=== PATIENT | female | born 1965 | race Caucasian/White ===

== ENCOUNTER 2018-01-05 10:09 | Emergency (ER) | payer SELFPAY ==
[2018-01-05 10:14] VITALS: BP 134/82
--- NOTE | 2018-01-05 10:43 | ER Document Report ---
HPI - HPI Pain Level: 4 Course - Vital Signs Vital signs: Temp Pulse Resp BP Pulse Ox 98.5 F 90 16 134/82 H 100 01/05/18 10:12 01/05/18 10:12 01/05/18 10:12 01/05/18 10:12 01/05/18 10:12
--- NOTE | 2018-01-05 10:46 | ER Document Report ---
ED Oral Problem - General Chief Complaint: Toothache Stated Complaint: TOOTH PAIN Time Seen by Provider: 01/05/18 10:38 Mode of Arrival: Ambulatory Information source: Patient Notes: This 52-year-old female patient comes emergency room with 2 day history of right lower jaw swelling and toothache. She had a crown fall off of the tooth a year ago and has not been back to see a dentist. There is no fever. There is been no drainage. - Related Data Allergies/Adverse Reactions: No Known Allergies Allergy (Unverified 01/05/18 10:11) Past Medical History - General Information source: Patient - Social History Smoking Status: Current Every Day Smoker Cigarette use (# per day): Yes - 1 PPD Chew tobacco use (# tins/day): No Smoking Education Provided: No Frequency of alcohol use: None Drug Abuse: None Lives with: Family Family History: Reviewed & Not Pertinent - Medical History Medical History: Negative Past Surgical History: Reports: Other - Bilateral spontaneous pneumothorax with chest tube insertion Review of Systems - Review of Systems Constitutional: No symptoms reported EENT: Dental problem Cardiovascular: No symptoms reported Respiratory: No symptoms reported Gastrointestinal: No symptoms reported Genitourinary: No symptoms reported Female Genitourinary: Post menopausal Musculoskeletal: No symptoms reported Skin: No symptoms reported Hematologic/Lymphatic: No symptoms reported Neurological/Psychological: No symptoms reported Physical Exam - Vital signs Vitals: Temp Pulse Resp BP Pulse Ox 98.5 F 90 16 134/82 H 100 01/05/18 10:12 01/05/18 10:12 01/05/18 10:12 01/05/18 10:12 01/05/18 10:12 - General General appearance: Appears well, Alert In distress: Mild - HEENT Head: Normocephalic, Atraumatic, Other - Right lower jaw region is swollen and tender without erythema. Eyes: Normal Pupils: PERRL Mouth/Lips: Other - The right lower first premolar shows a decayed stump or spike where the crown once set. There is edema to the gums on either side, there is no pointing abscess detected. Neck: Normal - Respiratory Respiratory status: No respiratory distress - Cardiovascular Rhythm: Regular - Abdominal Inspection: Normal - Back Back: Normal - Extremities General upper extremity: Normal inspection General lower extremity: Normal inspection - Neurological Neuro grossly intact: Yes - Psychological Associated symptoms: Normal affect, Normal mood - Skin Skin Temperature: Warm Skin Moisture: Dry Skin Color: Normal Course - Vital Signs Vital signs: Temp Pulse Resp BP Pulse Ox 98.5 F 90 16 134/82 H 100 01/05/18 10:12 01/05/18 10:12 01/05/18 10:12 01/05/18 10:12 01/05/18 10:12 Discharge - Discharge Clinical Impression: Toothache Condition: Stable Disposition: HOME, SELF-CARE Instructions: Dentist Additional Instructions: Dental Infection or Abscess You have an infection, perhaps an abscess (pus formation) of the gum around one of your teeth, which is probably decayed. If there is an abscess, it may drain on its own or it may need to be opened or lanced. Severe swelling or drainage around a tooth usually means a deep dental abscess which usually requires evaluation and treatment by a dentist or oral surgeon. Antibiotics may be prescribed while awaiting dental treatment. If you develop high fever with chills, worsening pain, or increasing swelling in the area, see a dentist or oral surgeon immediately or return to the Emergency Department immediately. Take the antibiotic as prescribed. Use warm soaks to your jaw. Take ibuprofen 600 mg every 8 hours or 2 Aleve every 12 hours for pain and inflammation. You may add Tylenol for pain control if needed. Follow-up with a local dentist next week. RETURN TO THE EMERGENCY ROOM IF ANY NEW OR WORSENING SYMPTOMS. Prescriptions: Clindamycin HCl 300 mg PO QID #28 capsule
== END 2018-01-05 10:58 | disposition home or self-care (01) ==
LOC: ER 10:09
DX: K08.89 Other specified disorders of teeth and supporting structures (principal); R22.0 Localized swelling, mass and lump, head; F17.210 Nicotine dependence, cigarettes, uncomplicated
CPT/HCPCS: 99282